=== PATIENT | female | born 1965 | race Caucasian/White ===

== ENCOUNTER 2017-09-25 11:36 | Observation (INO) ==
[2017-09-25] MEDS ORDERED: PROMETHAZINE 25 MG/1 ML VIAL IM PRN (15:24)
[2017-09-25] MEDS ORDERED: ACETAMINOPHEN 325 MG TABLET PO PRN (15:24)
[2017-09-25] MEDS ORDERED: MORPHINE 4 MG/1 ML VIAL IV PRN (15:24)
[2017-09-25] MEDS ORDERED: PANTOPRAZOLE 40 MG VIAL IV ONE (15:40)
[2017-09-25] MEDS: PANTOPRAZOLE 40 MG VIAL IV SCH (15:40)
[2017-09-25] MEDS ORDERED: ONDANSETRON 4 MG/2 ML VIAL ONE (15:40)
[2017-09-25] MEDS: LACTATED RINGERS 1,000 ML IV SCH (15:40)
[2017-09-25] MEDS: ONDANSETRON 4 MG/2 ML VIAL IV PRN ×2 (15:43→23:23)
[2017-09-25] MEDS ORDERED: LACTATED RINGERS 1,000 ML IV ONE (15:45)
[2017-09-25 18:13] LABS: Apearance,Urine CLOUDY (Clear); Bacteria,Urine Moderate /HPF (Few); Bilirubin,Urine Negative (Negative); Blood, Urine Negative (Negative); Glucose,Urine (UA) Negative (Negative); Ketones,Urine Negative (Negative); Mucus,Urine Few /LPF (Occasional); Nitrite,Urine Negative (Negative); Protein,Urine Negative; RBC,Urine 1 /HPF (0-4); Squamous Epithelial Cell,Urine Moderate /HPF (0-10); Urine Color Yellow (Yellow); Urine Specific Gravity 1.015 (1.001-1.035); Urine Urobilinogen < 2.0 EU/DL (0.2-1.0); WBC,Urine 3 /HPF (0-6)
[2017-09-25 19:37] LABS: Basophils # 0.1 10*3/uL (0.0-0.2); Basophils % 0.6 % (0.0-0.8); Eosinophils # 0.6 10*3/uL (0.0-0.87); Eosinophils % 5.4 % (0.00-10.9); Hematocrit 44.9 VOL% (35.7-47.0); Hemoglobin 14.5 GM/DL (12.0-16.0); Immature Granulocytes % 0.4 %; Immature Granulocytes Absolute 0.05 #; Lymphocytes % 26.2 % (21.3-54.2); Mean Corpuscular HGB Conc 32.3 GM/DL (32-36); Mean Corpuscular Hemoglobin 28 PG (27-34); Mean Corpuscular Volume 86.2 FL (87-102); Mean Platelet Volume 10.6 FL (9.6-12.0); Monocytes # 0.9 10*3/uL (0.11-0.8); Monocytes % 8.1 % (1.7-12.7); Neutrophils # 6.9 10*3/uL (1.4-7.4); Neutrophils % 59.3 % (38.7-73.9); Platelet Count 456 T/CUMM (130-400); Red Blood Count 5.21 MC/CUMM (3.8-5.5); Red Cell Distribution Width 15.2 % (9.3-17.3); White Blood Count 11.6 T/CUMM (4-12)
[2017-09-25 19:56] LABS: Albumin 3.5 G/DL (3.4-5.0); Bilirubin,Direct 0.15 MG/DL (0.0-0.20); Bilirubin,Total 0.6 MG/DL (0.2-1.0); Calcium 9.3 MG/DL (8.5-10.1); Osmolality,Calculated 279.4 MOS/KG (273-304); Potassium 4.2 MMOL/L (3.5-5.1); Total Protein 8.1 G/DL (6.4-8.3)
[2017-09-26] MEDS: LACTATED RINGERS 1,000 ML IV SCH ×2 (01:00→07:15)
[2017-09-26] MEDS ORDERED: ENOXAPARIN 40 MG/0.4 ML SYRINGE SUBCUT SCH (06:00)
[2017-09-26] MEDS: PANTOPRAZOLE 40 MG VIAL IV SCH (08:42)
[2017-09-26] MEDS: ONDANSETRON 4 MG/2 ML VIAL IV PRN (09:09)
[2017-09-26] MEDS ORDERED: LOPERAMIDE 2 MG CAPSULE PO ONE (10:09)
[2017-09-26 11:00] VITALS: BP 110/68
== END 2017-09-26 12:03 | disposition home or self-care (01) ==
LOC: N.3E 14:23 → INTOOBSV 14:23
PROVIDERS: ADMIT Surgery; ATTEND Surgery